=== PATIENT | female | born 1955 | race African-American/Black ===

== ENCOUNTER 2017-04-21 10:42 | Inpatient (IN) | payer MEDICAID ==
[~2017-04-21] VITALS: Ht 157.5 cm; Wt 93.7 kg
[2017-04-21] MEDS ORDERED: SODIUM CHLORIDE 0.9% 1,000 ML IV ONE (10:52)
[2017-04-21 11:27] LABS: Albumin 3.2 g/dL (3.4-5.0); BUN/Creatinine Ratio 17.4; Bilirubin, Total 0.4 mg/dL (0.2-1.0); Calcium 8.8 mg/dL (8.5-10.1); Potassium 4.4 mmol/L (3.5-5.1)
[2017-04-21 11:31] LABS: Magnesium 2.2 mg/dL (1.6-2.6)
[2017-04-21 11:46] LABS: Basophils # (auto) 0.1 uL; Eosinophils # (auto) 0.1 uL; Hemoglobin 14.4 g/dL (12.2-16.2)
[2017-04-21 12:05] LABS: Hematocrit 44.4 % (36.0-46.0); Lymphocytes # (auto) 4.1 uL; Lymphocytes % (auto) 50.3 % (10.0-50.0); Mean Corpuscular Hemoglobin 28.4 pg (28.0-32.0); Mean Corpuscular Hgb Conc. 32.4 g/dL (32.0-36.0); Mean Corpuscular Volume 87.6 fL (80.0-100.0); Mean Platelet Volume 10.4 fL (6.9-10.8); Monocytes # (auto) 0.6 uL; Monocytes % (auto) 6.7 % (0.0-12.0); Neutrophils # (auto) 3.4 uL; Nucleated Red Blood Cells % 0.7 %; Platelet Count (auto) 188 10^3/uL (140-450); Red Cell Distribution Width 15.3 % (11.8-14.3); White Blood Cell 8.2 10^3/uL (4.4-10.8)
[2017-04-21] MEDS ORDERED: ONDANSETRON HCL 4 MG/2 ML VIAL IV PRN (12:45)
[2017-04-21] MEDS ORDERED: hydrALAZINE HCL 20 MG/ML VL IV PRN (12:45)
[2017-04-21] MEDS ORDERED: DEXTROSE (50%) 50ML SYRG IV PRN (12:45)
[2017-04-21] MEDS ORDERED: NITROGLYCERIN 0.4 MG SL TAB SL PRN (12:45)
[2017-04-21] MEDS ORDERED: MORPHINE SULF INJ 2 MG/ML SYRINGE 1ML IV PRN (12:45)
[2017-04-21] MEDS ORDERED: HYDROcodone-ACET 5/325MG TAB PO PRN (12:45)
[2017-04-21 12:49] LABS: Large Platelets FEW; Platelet Clumps FEW; Platelet Estimate Adequate
[2017-04-21] MEDS: SODIUM CHLORIDE 0.9% 1,000 ML IV SCH (12:56)
[2017-04-21] MEDS ORDERED: METO25TA5 PO (12:58)
[2017-04-21] MEDS ORDERED: SITA100T7 PO (12:58)
[2017-04-21] MEDS ORDERED: GLIP-115 PO (12:58)
[2017-04-21] MEDS ORDERED: CANA100T OR (12:58)
[2017-04-21] MEDS ORDERED: CALCTAB25 PO (13:00)
[2017-04-21] MEDS ORDERED: LISI2.5T47 PO (13:00)
[2017-04-21] MEDS ORDERED: CHOL100083 OR (13:00)
[2017-04-21] MEDS ORDERED: LORA-622 PO (13:00)
[2017-04-21 15:04] VITALS: BP 95/57
[2017-04-21] MEDS ORDERED: cefTRIAXone 1GM/50ML D5W 50 ML IV ONE (15:15)
[2017-04-21] MEDS: ACCU-CHEK COMFORT CURVE STRIP VI SCH ×2 (17:18→22:00)
[2017-04-21] MEDS: InsuLIN REG 1unit/0.01ml Soln (100units/ml) SC SCH ×2 (17:19→22:33)
[2017-04-21 20:00] VITALS: BP 108/64
[2017-04-21] MEDS ORDERED: METOPROLOL TARTRATE 25 MG TAB PO SCH (22:00)
[2017-04-21 22:15] VITALS: BP 108/64
[2017-04-22] VITALS (7 sets, daily range): BP systolic 94–119; BP diastolic 59–75
[2017-04-22] MEDS: SODIUM CHLORIDE 0.9% 1,000 ML IV SCH ×2 (02:05→15:25)
[2017-04-22 04:49] LABS: Urine Bilirubin Negative (Negative); Urine Blood Negative /uL (Negative); Urine Color Yellow (Yellow); Urine Glucose 4+ mg/dL (Normal); Urine Ketone Negative (Negative); Urine Nitrite Negative (Negative); Urine RBC <1 /hpf (0 - 4); Urine Squamous Epithelial Cell FEW /hpf (<5); Urine Urobilinogen Normal (Negative)
[2017-04-22 06:13] LABS: BUN/Creatinine Ratio 28.6; Calcium 8.4 mg/dL (8.5-10.1); Potassium 3.8 mmol/L (3.5-5.1)
[2017-04-22] MEDS: InsuLIN REG 1unit/0.01ml Soln (100units/ml) SC SCH ×4 (06:56→22:00)
[2017-04-22] MEDS: ACCU-CHEK COMFORT CURVE STRIP VI SCH ×4 (06:56→22:00)
[2017-04-22] MEDS: cefTRIAXone 1GM/50ML D5W 50 ML IV SCH (08:20)
[2017-04-23] MEDS: SODIUM CHLORIDE 0.9% 1,000 ML IV SCH (04:35)
[2017-04-23 05:00] VITALS: BP 126/77
[2017-04-23] MEDS: InsuLIN REG 1unit/0.01ml Soln (100units/ml) SC SCH ×2 (06:51→12:03)
[2017-04-23] MEDS: ACCU-CHEK COMFORT CURVE STRIP VI SCH ×2 (06:51→12:03)
[2017-04-23] MEDS: cefTRIAXone 1GM/50ML D5W 50 ML IV SCH (08:16)
== END 2017-04-23 14:10 | disposition home or self-care (01) | DRG 422 ==
LOC: ER 10:42 → EDBD 10:42 → TELE 10:43 → TELE-E-ADS 14:24 → TELE-EAST 18:17
PROVIDERS: ADMIT Internal Medicine; ATTEND Internal Medicine
DX: E86.0 Dehydration (principal); G23.8 Other specified degenerative diseases of basal ganglia; E11.22 Type 2 diabetes mellitus with diabetic chronic kidney disease; N18.3 Chronic kidney disease, stage 3 (moderate); E11.65 Type 2 diabetes mellitus with hyperglycemia; I12.9 Hypertensive chronic kidney disease with stage 1 through stage 4 chronic kidney disease, or unspecified chronic kidney disease; E66.01 Morbid (severe) obesity due to excess calories; Q90.9 Down syndrome, unspecified; Z68.37 Body mass index [BMI] 37.0-37.9, adult
CPT/HCPCS: 36415; 70450; 71010; 80048; 80053; 81001; 82962; 83036; 83735; 83970; 84443; 84484; 85025; 87086; 93005; 93306; 93886; 94761; 96360; 96361; J0696; J1815

== ENCOUNTER 2017-07-19 11:47 | Emergency (ER) | payer MEDICAID ==
[~2017-07-19] VITALS: Ht 177.8 cm; Wt 83.9 kg
[~2017-07-19 11:47] MED LIST: CALCTAB25 PO; CANA100T OR; CHOL100083 OR; GLIP-115 PO; LISI2.5T47 PO; LORA-622 PO; METO25TA5 PO; SITA100T7 PO
[2017-07-19] MEDS ORDERED: SODIUM CHLORIDE 0.9% 500 ML IV ONE (13:03)
[2017-07-19 14:37] LABS: Basophils # (auto) 0.1 uL; Basophils % (auto) 1.1 % (0.0-2.0); Eosinophils # (auto) 0 uL; Eosinophils % (auto) 0.1 % (0.0-7.0); Hematocrit 43.2 % (36.0-46.0); Hemoglobin 14.2 g/dL (12.2-16.2); Lymphocytes # (auto) 1.2 uL; Lymphocytes % (auto) 15.9 % (10.0-50.0); Mean Corpuscular Hemoglobin 28.9 pg (28.0-32.0); Mean Corpuscular Hgb Conc. 32.9 g/dL (32.0-36.0); Mean Corpuscular Volume 87.8 fL (80.0-100.0); Monocytes % (auto) 12.7 % (0.0-12.0); Neutrophils # (auto) 5.3 uL; Neutrophils % (auto) 70.2 % (37.0-80.0); Nucleated Red Blood Cells % 0.1 %; Platelet Count (auto) 180 10^3/uL (140-450); Red Blood Cells 4.91 10^6/uL (4.0-5.20); Red Cell Distribution Width 15.6 % (11.8-14.3); White Blood Cell 7.5 10^3/uL (4.4-10.8)
[2017-07-19 14:56] LABS: Alanine Aminotransferase 31 U/L (13-56); Albumin 3.3 g/dL (3.4-5.0); Alkaline Phosphatase 79 U/L (45-117); Anion Gap 9 (5-15); Aspartate Aminotransferase 20 U/L (15-37); BUN/Creatinine Ratio 18.7; Bilirubin, Total 0.3 mg/dL (0.2-1.0); Blood Urea Nitrogen 23 mg/dL (7-18); Calcium 8.6 mg/dL (8.5-10.1); Carbon Dioxide 26 mmol/L (21-32); Chloride 103 mmol/L (98-107); GFR African American 57 mL/min; GFR Non-African American 47 mL/min; Glucose 193 mg/dL (74-106); Potassium 3.9 mmol/L (3.5-5.1); Sodium 138 mmol/L (136-145); Total Protein 8.2 g/dL (6.4-8.2)
[2017-07-19 16:38] VITALS: BP 108/78
== END 2017-07-19 17:16 | disposition home or self-care (01) ==
LOC: EDBD 11:47 → ER 11:47
DX: J01.90 Acute sinusitis, unspecified (principal); J20.9 Acute bronchitis, unspecified; Q90.9 Down syndrome, unspecified; E11.65 Type 2 diabetes mellitus with hyperglycemia; E11.21 Type 2 diabetes mellitus with diabetic nephropathy; E44.1 Mild protein-calorie malnutrition; I10 Essential (primary) hypertension; E78.5 Hyperlipidemia, unspecified; Z68.26 Body mass index [BMI] 26.0-26.9, adult
CPT/HCPCS: 36415; 71046; 80053; 83735; 84443; 84484; 85025; 93005; 96360; 96361; 99285; J7030

== ENCOUNTER 2019-07-02 11:33 | Emergency (ER) | payer MEDICAID ==
[~2019-07-02] VITALS: Ht 170.2 cm; Wt 77.1 kg
[~2019-07-02 11:33] MED LIST changes: +ATOR10TA52 PO; +ERTU5TAB PO; -GLIP-115 PO; +GLIP5TAB12 PO; +MONT10TA34 PO
[2019-07-02] MEDS ORDERED: SODIUM CHLORIDE 0.9% 1,000 ML IV ONE (11:45)
[2019-07-02 13:24] LABS: Basophils # (auto) 0.1 uL; Basophils % (auto) 0.4 % (0.0-2.0); Eosinophils # (auto) 0 uL; Eosinophils % (auto) 0.2 % (0.0-7.0); Hematocrit 41.2 % (36.0-46.0); Hemoglobin 13.5 g/dL (12.2-16.2); Lymphocytes # (auto) 0.7 uL; Lymphocytes % (auto) 4.6 % (10.0-50.0); Mean Corpuscular Hemoglobin 28.9 pg (28.0-32.0); Mean Corpuscular Hgb Conc. 32.7 g/dL (32.0-36.0); Mean Corpuscular Volume 88.3 fL (80.0-100.0); Monocytes # (auto) 1.1 uL; Monocytes % (auto) 6.8 % (0.0-12.0); Neutrophils # (auto) 13.9 uL; Nucleated Red Blood Cells % 0.1 %; Platelet Count (auto) 198 10^3/uL (140-450); Red Blood Cells 4.67 10^6/uL (4.0-5.20); Red Cell Distribution Width 15.8 % (11.8-14.3); White Blood Cell 15.7 10^3/uL (4.4-10.8)
[2019-07-02 13:44] LABS: INR 1.08 (0.9-1.15); Partial Thromboplastin Time 29.8 sec (23.64-32.05)
[2019-07-02 13:56] LABS: Albumin 2.9 g/dL (3.4-5.0); Anion Gap 8 (5-15); Blood Alcohol < 3.0 mg/dL (0-5); Blood Urea Nitrogen 22 mg/dL (7-18); Calcium 8.8 mg/dL (8.5-10.1); Carbon Dioxide 25 mmol/L (21-32); Chloride 105 mmol/L (98-107); Glucose 219 mg/dL (74-106); Potassium 3.8 mmol/L (3.5-5.1); Sodium 138 mmol/L (136-145)
[2019-07-02 13:58] LABS: Alanine Aminotransferase 22 U/L (13-56); Aspartate Aminotransferase 19 U/L (15-37); BUN/Creatinine Ratio 21.6; GFR African American 71 mL/min; GFR Non-African American 58 mL/min
[2019-07-02 14:02] LABS: Alkaline Phosphatase 87 U/L (45-117); Bilirubin, Total 0.4 mg/dL (0.2-1.0); Total Protein 7.7 g/dL (6.4-8.2)
[2019-07-02 14:51] VITALS: BP 122/73
== END 2019-07-02 15:12 | disposition home or self-care (01) ==
LOC: ER 11:33 → EDBD 11:33 → ER 15:12
DX: F03.90 Unspecified dementia, unspecified severity, without behavioral disturbance, psychotic disturbance, mood disturbance, and anxiety (principal); R41.82 Altered mental status, unspecified; N39.0 Urinary tract infection, site not specified; Q90.9 Down syndrome, unspecified; J40 Bronchitis, not specified as acute or chronic; E44.0 Moderate protein-calorie malnutrition; E11.9 Type 2 diabetes mellitus without complications; E78.5 Hyperlipidemia, unspecified; I10 Essential (primary) hypertension; Z68.26 Body mass index [BMI] 26.0-26.9, adult; Z79.899 Other long term (current) drug therapy
CPT/HCPCS: 36415; 70450; 71045; 80053; 80320; 84484; 85025; 85610; 85730; 93005

== ENCOUNTER 2020-01-06 11:29 | Inpatient (IN) | payer MEDICAID ==
[~2020-01-06] VITALS: Ht 165.1 cm; Wt 74.6 kg
[2020-01-06 12:18] LABS: Basophils # (auto) 0.1 10 ^3/uL (0-0.2); Basophils % (auto) 0.8 % (0.0-2.0); Eosinophils # (auto) 0.2 10 ^3/uL (0-0.8); Eosinophils % (auto) 1.8 % (0.0-7.0); Hematocrit 44.4 % (36.0-46.0); Hemoglobin 14.2 g/dL (12.2-16.2); Lymphocytes # (auto) 2.6 10 ^3/uL (0.4-5.4); Lymphocytes % (auto) 24.7 % (10.0-50.0); Mean Corpuscular Hemoglobin 27.9 pg (28.0-32.0); Mean Corpuscular Volume 87.3 fL (80.0-100.0); Monocytes # (auto) 0.9 10 ^3/uL (0-1.3); Neutrophils # (auto) 6.6 10 ^3/uL (1.6-8.6); Neutrophils % (auto) 63.7 % (37.0-80.0); Platelet Count (auto) 181 10^3/uL (140-450); Red Blood Cells 5.08 10^6/uL (4.0-5.20); Red Cell Distribution Width 15.6 % (11.8-14.3); White Blood Cell 10.4 10^3/uL (4.4-10.8)
[2020-01-06 12:44] LABS: Albumin 2.6 g/dL (3.4-5.0); Calcium 8.5 mg/dL (8.5-10.1); Potassium 3.8 mmol/L (3.5-5.1)
[2020-01-06 12:47] LABS: BUN/Creatinine Ratio 18.9; Bilirubin, Total 0.4 mg/dL (0.2-1.0); Total Protein 7.5 g/dL (6.4-8.2)
[2020-01-06] MEDS ORDERED: levoFLOXacin 500MG 100 ML IV ONE (13:00)
[2020-01-06] MEDS ORDERED: LORazepam 2MG/ML-1ML VIAL IV ONE (16:00)
[2020-01-06] MEDS ORDERED: ONDANSETRON HCL 4 MG/2 ML VIAL IV PRN (16:15)
[2020-01-06] MEDS ORDERED: ACETAMINOPHEN 500 MG TAB PO PRN (16:15)
[2020-01-06] MEDS ORDERED: MORPHINE SULF INJ 2 MG/ML SYRINGE 1ML IV PRN (16:15)
[2020-01-06] MEDS ORDERED: ALBUTEROL SULF 2.5 MG/0.5ML(0.5%) NEB SOLN NEB PRN (16:15)
[2020-01-06] MEDS: SODIUM CHLORIDE 0.9% 1,000 ML IV SCH (16:15)
[2020-01-06] MEDS ORDERED: DEXTROSE (50%) 50ML SYRG IV PRN (16:15)
[2020-01-06] MEDS ORDERED: NITROGLYCERIN 0.4 MG SL TAB SL PRN (16:15)
[2020-01-06] MEDS ORDERED: traMADol HCL 50 MG TAB PO PRN (16:15)
[2020-01-06] MEDS: InsuLIN REG 1unit/0.01ml Soln (100units/ml) SC SCH ×2 (17:00→22:40)
[2020-01-06] MEDS: ACCU-CHEK COMFORT CURVE STRIP VI SCH ×2 (17:15→22:36)
[2020-01-06 17:48] LABS: Urine WBC None Seen /hpf (0 - 5)
[2020-01-06 18:02] LABS: Urine Bacteria NONE SEEN /hpf (None Seen); Urine Blood Negative /uL (Negative); Urine Specific Gravity 1.021 (1.001-1.035)
[2020-01-06 18:58] VITALS: BP 145/82
[2020-01-06 22:00] VITALS: BP 106/62
[2020-01-06] MEDS: CLINDAMYCIN 600MG IV 50 ML IV SCH (22:35)
[2020-01-07 05:00] VITALS: BP 130/66
[2020-01-07] MEDS: SODIUM CHLORIDE 0.9% 1,000 ML IV SCH ×2 (05:16→18:51)
[2020-01-07] MEDS ORDERED: DONE5TAB31 PO (05:45)
[2020-01-07] MEDS: CLINDAMYCIN 600MG IV 50 ML IV SCH ×3 (06:40→22:23)
[2020-01-07] MEDS: ACCU-CHEK COMFORT CURVE STRIP VI SCH ×4 (07:00→22:23)
[2020-01-07] MEDS: InsuLIN REG 1unit/0.01ml Soln (100units/ml) SC SCH ×4 (07:00→22:00)
[2020-01-07 09:00] VITALS: BP 123/85
[2020-01-07] MEDS: levoFLOXacin 500MG 100 ML IV SCH (10:04)
[2020-01-07] MEDS: ENOXAPARIN SOD 40 MG/0.4 ML SYRINGE SC SCH (10:04)
[2020-01-07 14:53] VITALS: BP 131/78
[2020-01-07 22:00] VITALS: BP 119/65
[2020-01-08 05:00] VITALS: BP 151/99
[2020-01-08] MEDS: CLINDAMYCIN 600MG IV 50 ML IV SCH ×3 (06:11→21:51)
[2020-01-08] MEDS: ACCU-CHEK COMFORT CURVE STRIP VI SCH ×4 (07:00→21:51)
[2020-01-08] MEDS: InsuLIN REG 1unit/0.01ml Soln (100units/ml) SC SCH ×4 (07:00→21:51)
[2020-01-08 08:36] LABS: Basophils # (auto) 0 10 ^3/uL (0-0.2); Basophils % (auto) 0.6 % (0.0-2.0); Eosinophils # (auto) 0.1 10 ^3/uL (0-0.8); Eosinophils % (auto) 1.3 % (0.0-7.0); Hematocrit 43.7 % (36.0-46.0); Lymphocytes # (auto) 2.4 10 ^3/uL (0.4-5.4); Lymphocytes % (auto) 31.7 % (10.0-50.0); Mean Corpuscular Hemoglobin 27.8 pg (28.0-32.0); Mean Corpuscular Hgb Conc. 31.9 g/dL (32.0-36.0); Monocytes # (auto) 0.8 10 ^3/uL (0-1.3); Monocytes % (auto) 10.8 % (0.0-12.0); Neutrophils # (auto) 4.3 10 ^3/uL (1.6-8.6); Neutrophils % (auto) 55.6 % (37.0-80.0); Platelet Count (auto) 196 10^3/uL (140-450); Red Blood Cells 5.02 10^6/uL (4.0-5.20); Red Cell Distribution Width 15.6 % (11.8-14.3); White Blood Cell 7.7 10^3/uL (4.4-10.8)
[2020-01-08] MEDS: levoFLOXacin 500MG 100 ML IV SCH (08:36)
[2020-01-08] MEDS: SODIUM CHLORIDE 0.9% 1,000 ML IV SCH ×2 (08:36→21:35)
[2020-01-08] MEDS: ENOXAPARIN SOD 40 MG/0.4 ML SYRINGE SC SCH (08:37)
[2020-01-08 08:55] LABS: BUN/Creatinine Ratio 17.6; Calcium 8.6 mg/dL (8.5-10.1)
[2020-01-08 09:00] VITALS: BP 151/78
[2020-01-08 13:00] VITALS: BP 136/65
[2020-01-08] MEDS ORDERED: IOHEXOL 350 MG/ML 100ML IJ ONE (16:15)
[2020-01-08 17:00] VITALS: BP 119/63
[2020-01-09] MEDS: CLINDAMYCIN 600MG IV 50 ML IV SCH ×3 (05:41→21:03)
[2020-01-09 06:28] LABS: Basophils # (auto) 0.1 10 ^3/uL (0-0.2); Basophils % (auto) 0.8 % (0.0-2.0); Eosinophils # (auto) 0.1 10 ^3/uL (0-0.8); Eosinophils % (auto) 0.8 % (0.0-7.0); Hematocrit 45.9 % (36.0-46.0); Hemoglobin 15.1 g/dL (12.2-16.2); Lymphocytes # (auto) 2.1 10 ^3/uL (0.4-5.4); Lymphocytes % (auto) 26.2 % (10.0-50.0); Mean Corpuscular Hemoglobin 28.6 pg (28.0-32.0); Mean Corpuscular Hgb Conc. 32.9 g/dL (32.0-36.0); Mean Corpuscular Volume 87.1 fL (80.0-100.0); Monocytes # (auto) 0.9 10 ^3/uL (0-1.3); Monocytes % (auto) 10.9 % (0.0-12.0); Neutrophils # (auto) 4.9 10 ^3/uL (1.6-8.6); Neutrophils % (auto) 61.3 % (37.0-80.0); Nucleated Red Blood Cells % 0.1 %; Platelet Count (auto) 193 10^3/uL (140-450); Red Blood Cells 5.27 10^6/uL (4.0-5.20); Red Cell Distribution Width 15.6 % (11.8-14.3); White Blood Cell 7.9 10^3/uL (4.4-10.8)
[2020-01-09 06:54] LABS: Potassium 3.9 mmol/L (3.5-5.1)
[2020-01-09] MEDS: InsuLIN REG 1unit/0.01ml Soln (100units/ml) SC SCH ×4 (06:55→21:08)
[2020-01-09] MEDS: ACCU-CHEK COMFORT CURVE STRIP VI SCH ×4 (06:55→21:04)
[2020-01-09] MEDS: ENOXAPARIN SOD 40 MG/0.4 ML SYRINGE SC SCH (08:55)
[2020-01-09] MEDS: levoFLOXacin 500MG 100 ML IV SCH (08:55)
[2020-01-09 09:06] VITALS: BP 115/69
[2020-01-09] MEDS: SODIUM CHLORIDE 0.9% 1,000 ML IV SCH (10:55)
[2020-01-09 12:28] VITALS: BP 110/56
[2020-01-09 16:51] VITALS: BP 112/67
[2020-01-09 22:00] VITALS: BP 105/56
[2020-01-10] MEDS: SODIUM CHLORIDE 0.9% 1,000 ML IV SCH ×2 (00:15→13:35)
[2020-01-10 05:58] VITALS: BP 107/75
[2020-01-10] MEDS: ACCU-CHEK COMFORT CURVE STRIP VI SCH ×3 (06:07→17:00)
[2020-01-10] MEDS: CLINDAMYCIN 600MG IV 50 ML IV SCH ×2 (06:07→14:26)
[2020-01-10] MEDS: InsuLIN REG 1unit/0.01ml Soln (100units/ml) SC SCH ×3 (06:19→17:00)
[2020-01-10 06:50] LABS: Basophils # (auto) 0 10 ^3/uL (0-0.2); Basophils % (auto) 0.6 % (0.0-2.0); Eosinophils # (auto) 0 10 ^3/uL (0-0.8); Eosinophils % (auto) 0.6 % (0.0-7.0); Hematocrit 40.7 % (36.0-46.0); Hemoglobin 13.3 g/dL (12.2-16.2); Lymphocytes # (auto) 2.1 10 ^3/uL (0.4-5.4); Lymphocytes % (auto) 29.3 % (10.0-50.0); Mean Corpuscular Hgb Conc. 32.6 g/dL (32.0-36.0); Mean Corpuscular Volume 86.1 fL (80.0-100.0); Monocytes # (auto) 0.8 10 ^3/uL (0-1.3); Neutrophils # (auto) 4.1 10 ^3/uL (1.6-8.6); Neutrophils % (auto) 58.5 % (37.0-80.0); Nucleated Red Blood Cells % 0.1 %; Platelet Count (auto) 193 10^3/uL (140-450); Red Blood Cells 4.73 10^6/uL (4.0-5.20); Red Cell Distribution Width 15.8 % (11.8-14.3)
[2020-01-10 07:11] LABS: Calcium 8.5 mg/dL (8.5-10.1)
[2020-01-10 07:13] LABS: BUN/Creatinine Ratio 17.5
[2020-01-10 09:00] VITALS: BP 124/53
[2020-01-10] MEDS: levoFLOXacin 500MG 100 ML IV SCH (09:56)
[2020-01-10] MEDS: ENOXAPARIN SOD 40 MG/0.4 ML SYRINGE SC SCH (09:57)
[2020-01-10 13:00] VITALS: BP 122/63
[2020-01-10 14:56] VITALS: BP 122/63
== END 2020-01-10 17:15 | disposition home or self-care (01) | DRG 720 ==
LOC: EDUNIT# 11:29 → EDBD 11:29 → ER 11:29 → TELE 11:30 → TELE-EAST 18:35 → TELE-WESTW 01-07 06:30
PROVIDERS: ADMIT Internal Medicine; ATTEND Internal Medicine
DX: A41.9 Sepsis, unspecified organism (principal); J69.0 Pneumonitis due to inhalation of food and vomit; G92 Toxic encephalopathy; E11.21 Type 2 diabetes mellitus with diabetic nephropathy; F03.90 Unspecified dementia, unspecified severity, without behavioral disturbance, psychotic disturbance, mood disturbance, and anxiety; I10 Essential (primary) hypertension; E78.00 Pure hypercholesterolemia, unspecified; E78.5 Hyperlipidemia, unspecified; Q90.9 Down syndrome, unspecified; Z03.818 Encounter for observation for suspected exposure to other biological agents ruled out; Z79.899 Other long term (current) drug therapy
CPT/HCPCS: 36415; 70450; 71045; 71275; 80048; 80053; 81001; 82962; 83036; 83605; 84443; 85025; 85379; 87040; 87081; 92610; 93005; 93970; 97116; 97530; G0378; J1815; J1956; J3490

== ENCOUNTER 2020-02-06 16:10 | Inpatient (IN) | payer MEDICAID ==
[~2020-02-06] VITALS: Ht 157.5 cm; Wt 59.0 kg
[~2020-02-06 16:10] MED LIST changes: +DONE5TAB31 PO
[2020-02-06] MEDS ORDERED: LORazepam 2MG/ML-1ML VIAL IV ONE (16:30)
[2020-02-06 17:03] LABS: Eosinophils # (auto) 0 10 ^3/uL (0-0.8); Lymphocytes # (auto) 0.7 10 ^3/uL (0.4-5.4); Monocytes # (auto) 0.6 10 ^3/uL (0-1.3); Nucleated Red Blood Cells % 0.1 %; Red Cell Distribution Width 16.6 % (11.8-14.3)
[2020-02-06 17:05] LABS: Albumin 2.7 g/dL (3.4-5.0); Anion Gap 7 (5-15); Basophils # (auto) 0.1 10 ^3/uL (0-0.2); Basophils % (auto) 0.8 % (0.0-2.0); Blood Urea Nitrogen 24 mg/dL (7-18); Calcium 8.9 mg/dL (8.5-10.1); Carbon Dioxide 25 mmol/L (21-32); Chloride 107 mmol/L (98-107); Eosinophils % (auto) 0.3 % (0.0-7.0); Glucose 196 mg/dL (74-106); Hematocrit 45.2 % (36.0-46.0); Hemoglobin 14.3 g/dL (12.2-16.2); Magnesium 2.6 mg/dL (1.6-2.6); Mean Corpuscular Hemoglobin 27.8 pg (28.0-32.0); Mean Corpuscular Hgb Conc. 31.7 g/dL (32.0-36.0); Mean Corpuscular Volume 87.7 fL (80.0-100.0); Monocytes % (auto) 8.4 % (0.0-12.0); Neutrophils % (auto) 81.5 % (37.0-80.0); Platelet Count (auto) 202 10^3/uL (140-450); Potassium 4.1 mmol/L (3.5-5.1); Red Blood Cells 5.16 10^6/uL (4.0-5.20); Sodium 139 mmol/L (136-145); White Blood Cell 7.4 10^3/uL (4.4-10.8)
[2020-02-06 17:10] LABS: Alanine Aminotransferase 25 U/L (13-56); Alkaline Phosphatase 80 U/L (45-117); Aspartate Aminotransferase 22 U/L (15-37); BUN/Creatinine Ratio 20.3; Bilirubin, Total 0.3 mg/dL (0.2-1.0); GFR African American 59 mL/min; GFR Non-African American 49 mL/min; Total Protein 7.9 g/dL (6.4-8.2)
[2020-02-06 17:17] LABS: INR 1.08 (0.9-1.15); Partial Thromboplastin Time 26.8 sec (23.0-31.2)
[2020-02-06] MEDS ORDERED: SODIUM CHLORIDE 0.9% 1,000 ML IV ONE (17:54)
[2020-02-06 23:34] LABS: Urine Bacteria MOD /hpf (None Seen); Urine Blood 1+ /uL (Negative); Urine Specific Gravity 1.031 (1.001-1.035); Urine WBC 158 /hpf (0 - 5); Urine WBC Clumps PRESENT /hpf (None Seen)
[2020-02-07] MEDS ORDERED: SODIUM CHLORIDE 0.9% 1,000 ML IV SCH (01:04)
[2020-02-07] MEDS ORDERED: ONDANSETRON HCL 4 MG/2 ML VIAL IV PRN (01:15)
[2020-02-07] MEDS ORDERED: HYDROcodone-ACET 5/325MG TAB PO PRN (01:15)
[2020-02-07] MEDS ORDERED: DOCUSATE SOD 100 MG CAP PO PRN (01:15)
[2020-02-07] MEDS ORDERED: ACETAMINOPHEN 325 MG TAB PO PRN (01:15)
[2020-02-07] MEDS ORDERED: levETIRAcetam 500 MG/5ML INJ IV ONE (02:33)
[2020-02-07] MEDS ORDERED: HALOPERIDOL LACTATE 5 MG/ML INJ VIAL IV ONE (05:45)
[2020-02-07] MEDS ORDERED: glipiZIDE 5 MG TAB PO SCH (07:00)
[2020-02-07 09:03] LABS: Basophils # (auto) 0.1 10 ^3/uL (0-0.2); Basophils % (auto) 0.7 % (0.0-2.0); Eosinophils # (auto) 0.1 10 ^3/uL (0-0.8); Eosinophils % (auto) 1.2 % (0.0-7.0); Hematocrit 39.4 % (36.0-46.0); Hemoglobin 12.2 g/dL (12.2-16.2); Lymphocytes # (auto) 2.3 10 ^3/uL (0.4-5.4); Lymphocytes % (auto) 23.3 % (10.0-50.0); Mean Corpuscular Hemoglobin 27.8 pg (28.0-32.0); Mean Corpuscular Volume 89.7 fL (80.0-100.0); Monocytes # (auto) 1.3 10 ^3/uL (0-1.3); Monocytes % (auto) 13.1 % (0.0-12.0); Neutrophils # (auto) 6.2 10 ^3/uL (1.6-8.6); Neutrophils % (auto) 61.7 % (37.0-80.0); Platelet Count (auto) 185 10^3/uL (140-450); Red Blood Cells 4.39 10^6/uL (4.0-5.20); Red Cell Distribution Width 16.6 % (11.8-14.3)
[2020-02-07 09:23] LABS: Calcium 8.1 mg/dL (8.5-10.1); Potassium 3.6 mmol/L (3.5-5.1)
[2020-02-07 09:29] LABS: BUN/Creatinine Ratio 24.4
[2020-02-07] MEDS ORDERED: CHOLECALCIFEROL 1000 UNIT OR SCH (10:00)
[2020-02-07] MEDS ORDERED: METOPROLOL TARTRATE 25 MG TAB PO SCH (10:00)
[2020-02-07] MEDS ORDERED: DONEPEZIL HYDROCHLORIDE 5 MG TAB PO SCH (10:00)
[2020-02-07] MEDS ORDERED: LISINOPRIL 5 MG TAB PO SCH (10:00)
[2020-02-07] MEDS ORDERED: MONTELUKAST SODIUM 10 MG TAB PO SCH (10:00)
[2020-02-07] MEDS ORDERED: CALCIUM W/VIT D (600MG/400IU) TAB PO SCH (10:00)
[2020-02-07] MEDS ORDERED: LORATADINE 10 MG TAB PO SCH (10:00)
[2020-02-07] MEDS ORDERED: CEFTRIAXONE SODIUM 2 GM in D5W 5% 50 ML IV ONE (11:00)
[2020-02-07 16:00] VITALS: BP 143/80
--- NOTE | 2020-02-07 17:45 | NUR ---
ss consult Per ss consult dc planning. Patient discharged prior to being assessed. Addendum: 02/08/20 at 1202 by Herminia CARMONA Amended: Links added.
[2020-02-07] MEDS ORDERED: ATORVASTATIN 20 MG TAB PO SCH (22:00)
[2020-02-08] MEDS ORDERED: cefTRIAXone 1GM/50ML D5W 50 ML IV SCH (09:00)
== END 2020-02-07 18:00 | disposition home or self-care (01) | DRG 53 ==
LOC: ER 16:10 → EDBD 16:10 → EDUNIT# 16:10 → TELE 16:11
PROVIDERS: ADMIT Hospitalist; ATTEND Internal Medicine
DX: G40.409 Other generalized epilepsy and epileptic syndromes, not intractable, without status epilepticus (principal); F03.91 Unspecified dementia, unspecified severity, with behavioral disturbance; E11.21 Type 2 diabetes mellitus with diabetic nephropathy; E11.65 Type 2 diabetes mellitus with hyperglycemia; E44.0 Moderate protein-calorie malnutrition; Q90.9 Down syndrome, unspecified; E78.5 Hyperlipidemia, unspecified; I10 Essential (primary) hypertension; E66.01 Morbid (severe) obesity due to excess calories; N39.0 Urinary tract infection, site not specified; Z79.899 Other long term (current) drug therapy; Z68.23 Body mass index [BMI] 23.0-23.9, adult; Z78.1 Physical restraint status
CPT/HCPCS: 36415; 70450; 71045; 80048; 80053; 80061; 81001; 83036; 83735; 84443; 84484; 85025; 85610; 85730; 87086; 87088; 87186; 93005; G0378; J0696; J7060

== ENCOUNTER 2020-03-31 18:41 | Emergency (ER) | payer MEDICAID ==
[~2020-03-31] VITALS: Ht 170.2 cm; Wt 75.7 kg
[2020-03-31 21:57] LABS: Basophils # (auto) 0.1 10 ^3/uL (0-0.2); Basophils % (auto) 0.9 % (0.0-2.0); Eosinophils # (auto) 0.1 10 ^3/uL (0-0.8); Eosinophils % (auto) 0.8 % (0.0-7.0); Hematocrit 41.1 % (36.0-46.0); Hemoglobin 13.3 g/dL (12.2-16.2); Lymphocytes # (auto) 3.1 10 ^3/uL (0.4-5.4); Lymphocytes % (auto) 34.9 % (10.0-50.0); Mean Corpuscular Hemoglobin 28.8 pg (28.0-32.0); Mean Corpuscular Hgb Conc. 32.4 g/dL (32.0-36.0); Mean Corpuscular Volume 88.7 fL (80.0-100.0); Monocytes # (auto) 0.8 10 ^3/uL (0-1.3); Monocytes % (auto) 8.9 % (0.0-12.0); Neutrophils # (auto) 4.9 10 ^3/uL (1.6-8.6); Neutrophils % (auto) 54.5 % (37.0-80.0); Platelet Count (auto) 170 10^3/uL (140-450); Red Blood Cells 4.63 10^6/uL (4.0-5.20); Red Cell Distribution Width 15.5 % (11.8-14.3)
[2020-03-31 22:10] LABS: Calcium 8.4 mg/dL (8.5-10.1); Potassium 3.8 mmol/L (3.5-5.1)
[2020-03-31 22:15] LABS: Albumin 2.8 g/dL (3.4-5.0); BUN/Creatinine Ratio 23.4; Bilirubin, Total 0.2 mg/dL (0.2-1.0); Total Protein 7.7 g/dL (6.4-8.2)
[2020-03-31 22:22] LABS: INR 1.05 (0.9-1.15); Partial Thromboplastin Time 26.8 sec (23.0-31.2)
[2020-04-01 02:16] VITALS: BP 117/86
== END 2020-04-01 00:23 | disposition home or self-care (01) ==
LOC: EDBD 18:41 → ER 18:41
DX: R10.2 Pelvic and perineal pain (principal); N93.8 Other specified abnormal uterine and vaginal bleeding; I10 Essential (primary) hypertension; E11.9 Type 2 diabetes mellitus without complications; F03.90 Unspecified dementia, unspecified severity, without behavioral disturbance, psychotic disturbance, mood disturbance, and anxiety; Q90.9 Down syndrome, unspecified; Z79.899 Other long term (current) drug therapy
CPT/HCPCS: 36415; 74176; 80053; 85025; 85610; 85730

== ENCOUNTER 2020-08-30 14:16 | Emergency (ER) | payer MEDICAID ==
[~2020-08-30] VITALS: Ht 154.9 cm; Wt 81.6 kg
[~2020-08-30 14:16] MED LIST changes: -DONE5TAB31 PO; +DONE5TAB80 PO
[2020-08-30 15:08] LABS: Basophils # (auto) 0.1 10 ^3/uL (0-0.2); Basophils % (auto) 0.6 % (0.0-2.0); Eosinophils # (auto) 0.3 10 ^3/uL (0-0.8); Eosinophils % (auto) 3.2 % (0.0-7.0); Hematocrit 44.2 % (36.0-46.0); Hemoglobin 14.3 g/dL (12.2-16.2); Lymphocytes # (auto) 3.4 10 ^3/uL (0.4-5.4); Lymphocytes % (auto) 35.1 % (10.0-50.0); Mean Corpuscular Hemoglobin 29.1 pg (28.0-32.0); Mean Corpuscular Hgb Conc. 32.3 g/dL (32.0-36.0); Mean Corpuscular Volume 90.1 fL (80.0-100.0); Monocytes % (auto) 10.8 % (0.0-12.0); Neutrophils # (auto) 4.9 10 ^3/uL (1.6-8.6); Neutrophils % (auto) 50.3 % (37.0-80.0); Nucleated Red Blood Cells % 0.1 %; Platelet Count (auto) 189 10^3/uL (140-450); Red Cell Distribution Width 16.7 % (11.8-14.3); White Blood Cell 9.7 10^3/uL (4.4-10.8)
[2020-08-30 15:21] LABS: Albumin 2.8 g/dL (3.4-5.0); Anion Gap 2 (5-15); Blood Urea Nitrogen 23 mg/dL (7-18); Calcium 8.6 mg/dL (8.5-10.1); Carbon Dioxide 30 mmol/L (21-32); Chloride 114 mmol/L (98-107); Glucose 135 mg/dL (74-106); Sodium 146 mmol/L (136-145)
[2020-08-30 15:26] LABS: Alanine Aminotransferase 18 U/L (13-56); Alkaline Phosphatase 69 U/L (45-117); Aspartate Aminotransferase 20 U/L (15-37); BUN/Creatinine Ratio 20.4; Bilirubin, Total 0.2 mg/dL (0.2-1.0); GFR African American 63 mL/min; GFR Non-African American 52 mL/min; Total Protein 8.1 g/dL (6.4-8.2)
[2020-08-30] MEDS ORDERED: SODIUM CHLORIDE 0.9% 1,000 ML IVB ONE (15:30)
[2020-08-30 23:23] VITALS: BP 106/63
== END 2020-08-30 23:36 | disposition home or self-care (01) ==
LOC: EDUNIT# 14:16 → ER 14:16 → EDBD 14:16 → ER 23:36
DX: R53.1 Weakness (principal); R07.9 Chest pain, unspecified; N39.0 Urinary tract infection, site not specified; I10 Essential (primary) hypertension; E78.5 Hyperlipidemia, unspecified; Z79.899 Other long term (current) drug therapy; Z20.822 Contact with and (suspected) exposure to COVID-19
CPT/HCPCS: 36415; 71045; 80053; 83735; 84484; 85025; 87426; 93005; 96360; 96361; 99285; C9803; J7030; U0003